=== PATIENT | female | born 1985 ===

== ENCOUNTER 2023-04-06 07:18 | Emergency (ER) | payer OTHER ==
[2023-04-06] MEDS ORDERED: Sodium Chloride 0.9% 10 ML Syringe FLUSH PRN (07:32)
[2023-04-06] MEDS ORDERED: Sodium Chloride 0.9% 1,000 ML IV ONE (07:33)
[2023-04-06] MEDS ORDERED: Diltiazem 25 MG/5 ML SDV IVPUSH ONE (07:40)
[2023-04-06 07:42] LABS: HEMATOCRIT 38.9 % (37.0-47.0); HEMOGLOBIN 13.4 g/dL (12.0-16.0); MEAN CORPUSCULAR HEMOGLOBIN 28.8 pg (27.0-34.0); MEAN CORPUSCULAR HGB CONC 34.4 g/dL (33.0-35.0); MEAN CORPUSCULAR VOLUME 83.5 fL (80-100); PLATELET COUNT,PLT 499 10^3/uL (150-450); RED BLOOD CELL COUNT 4.66 10^6/uL (4.2-5.4); WHITE BLOOD CELL COUNT,WBC 12.6 10^3/uL (5.0-10.0)
[2023-04-06] MEDS ORDERED: Diltiazem 125 MG in Sodium Chloride 0.9% 100 ML IV SCH (07:45)
[2023-04-06 07:47] LABS: BASOPHILS PERCENT AUTO 0.4 % (0.0-1.0); EOSINOPHILS PERCENT AUTO 1.7 % (1.0-3.0); MONOCYTES PERCENT AUTO 7.5 % (2-8); NEUTROPHILS PERCENT AUTO 71.4 % (42.2-75.2)
[2023-04-06] MEDS ORDERED: Sodium Chloride 0.9% 100 ML ONE (07:50)
[2023-04-06 07:53] LABS: INR 0.8 (0.9-1.2); PROTHROMBIN TIME 8.8 SEC (9.0-12.0); PTT,PARTIAL THROMBOPLSTIN TIME 25.1 SEC (22.0-34.0)
[2023-04-06] MEDS ORDERED: Iopamidol 755 Mg/ML 100 ML Bottle IVPUSH ONE (08:01)
[2023-04-06 08:05] LABS: A/G RATIO 1.5; ALBUMIN 4.8 g/dL (3.4-5.0); ANION GAP 19.7 mEq/L (7-13); BILIRUBIN TOTAL 2.5 mg/dL (0.2-1.0); BUN/CREATININE RATIO 12.9 (No establ ref range); CALCIUM 9.2 mg/dL (8.5-10.1); CREATININE 0.93 mg/dL (0.55-1.02); EST CRCL DRUG DOSING (CG) 76.78 mL/min; POTASSIUM,K 4.7 mmol/L (3.5-5.1); TSH ULTRASENSITIVE 1.59 uIU/mL (0.36-3.74)
[2023-04-06] MEDS ORDERED: Diltiazem 25 MG/5 ML SDV ONE (08:11)
[2023-04-06] MEDS ORDERED: Glucagon,Human Recombinant 1 MG Vial IM PRN (08:14)
[2023-04-06] MEDS ORDERED: 50% Dextrose in Water 50 ML Syringe IVPUSH PRN (08:14)
[2023-04-06] MEDS ORDERED: Insulin Regular, Human 100 Units/ML 3 ML Vial IV ONE (08:14)
[2023-04-06 08:58] LABS: EOSINOPHILS PERCENT MAN 2 % (1-3); LYMPHOCYTES PERCENT MAN 15 % (20-50); METAMYELOCYTE PERCENT MAN 1; MONOCYTES PERCENT MAN 11 % (2-8); SEG NEUTROPHILS PERCENT MAN 71 % (42-75)
[2023-04-06 09:08] LABS: APPEARANCE,URINE CLEAR (CLEAR); BILIRUBIN,URINE NEGATIVE (NEGATIVE); COLOR,URINE YELLOW (YELLOW); GLUCOSE,URINE 500 (NEGATIVE); KETONES,URINE 80 (NEGATIVE); LEUKOCYTE ESTERASE,URINE NEGATIVE (NEGATIVE); NITRITE,URINE NEGATIVE (NEGATIVE); OCCULT BLOOD,URINE TRACE-INTACT (NEGATIVE); PROTEIN,URINE NEGATIVE (NEGATIVE); UROBILINOGEN,URINE 0.2 mg/dL (0.2-1.0)
[2023-04-06 09:09] LABS: AMPHETAMINES,URINE NEGATIVE (NEGATIVE); BARBITURATES,URINE NEGATIVE (NEGATIVE); BENZODIAZEPINE,URINE NEGATIVE (NEGATIVE); MDMA (ECSTASY), URINE NEGATIVE (NEGATIVE); METHADONE,URINE NEGATIVE (NEGATIVE); METHAMPHETAMINES,URINE NEGATIVE (NEGATIVE); OPIATES,URINE NEGATIVE (NEGATIVE); OXYCODONE,URINE NEGATIVE (NEGATIVE); PHENCYCLIDINE,URINE NEGATIVE (NEGATIVE); TCA,URINE NEGATIVE (NEGATIVE)
[2023-04-06] MEDS ORDERED: Diltiazem 120 MG Cap.CD PO ONE (09:37)
[2023-04-06 09:41] LABS: AMORPHOUS SEDIMENT,URINE FEW /HPF (NOT SEEN); BACTERIA,URINE FEW /HPF (0-FEW/HPF); EPITHELIAL CELLS,URINE FEW /HPF (NOT SEEN); MUCUS,URINE FEW /LPF (NOT SEEN); RBC,URINE 0-5 /HPF (0-5); WBC,URINE 0-5 /HPF (0-5/HPF)
[2023-04-06] MEDS ORDERED: Apixaban 5 MG Tab PO ONE (10:03)
[2023-04-06 10:42] VITALS: BP 128/74; PULSE 81
== END 2023-04-06 10:42 | disposition home or self-care (01) ==
LOC: DL.ED 07:18
DX: I48.91 Unspecified atrial fibrillation (principal); I26.94 Multiple subsegmental thrombotic pulmonary emboli without acute cor pulmonale; E11.65 Type 2 diabetes mellitus with hyperglycemia; E66.9 Obesity, unspecified; Z68.31 Body mass index [BMI] 31.0-31.9, adult; Z79.84 Long term (current) use of oral hypoglycemic drugs; Z79.899 Other long term (current) drug therapy; Z88.8 Allergy status to other drugs, medicaments and biological substances
CPT/HCPCS: 36415; 71045; 71275; 80053; 80305; 81001; 81025; 82009; 82800; 82947; 83735; 84443; 84484; 85025; 85379; 85610; 85730; 93005; 93010; 96365; 96366; 96376; 99284; 99285; A9270; J1815; J3490; J7030; Q9967